=== PATIENT | female | born 1990 | race Caucasian/White ===

== ENCOUNTER 2017-05-07 18:13 | Emergency (ER) | payer SELFPAY ==
[~2017-05-07] VITALS: Ht 167.6 cm; Wt 60.0 kg
[~2017-05-07 18:13] MED LIST: PROM25SU8 PO; Z.0.NO CURRENT MEDS
[2017-05-07 18:17] VITALS: BP 127/69; PULSE 68; RESP 18; TEMP 98.1; O2SAT 100
--- NOTE | 2017-05-07 19:10 | RADRPT ---
EXAM DATE/TIME: 05/07/2017 18:34 [place] COMPARISON: No previous studies available for comparison. INDICATIONS : Lower back pain. MEDICAL HISTORY : None. SURGICAL HISTORY : None. ENCOUNTER: Initial ACUITY: 4 - 6 days PAIN SCORE: 6/10 LOCATION: Sacrum/Coccyx FINDINGS: Two-view examination of the sacrum and coccyx demonstrates no evidence of fracture or malalignment. The sacral ala and foramina appear symmetric and intact. The coccyx appears unremarkable. The preve rtebral soft tissues are within normal limits. CONCLUSION: No acute disease. Nirmal Noonan MD on May 07, 2017 at 19:08 Board Certified Radiologist. This report was verified electronically.
[2017-05-07 20:49] VITALS: BP 113/58; PULSE 61; RESP 16; O2SAT 100
[2017-05-07] MEDS ORDERED: BACL10TA PO (21:11)
[2017-05-07] MEDS ORDERED: DICL75TA PO (21:11)
[2017-05-07] MEDS ORDERED: KETOROLAC TROMETHAMINE 60 MG/2 ML (IM) VIAL IM ONE (21:15)
--- NOTE | 2017-05-07 21:15 | PD ---
HPI Chief Complaint: Back/ Neck Pain or Injury Time Seen by Provider: 20:49 Travel History International Travel<30 days: No Contact w/Intl Traveler<30days: No Traveled to known affect area: No History of Present Illness HPI 26-year-old female presents for evaluation of lower back pain. She reports that 6 days ago she was attempting to shoot across both for the first time. She reports that in order to sure that she has to pull it back very far. She reports that as she was pulling back her crossbow she felt a sharp pain in her lower back. Pain is a sharp pain which is constant and worse with movement. She reports occasional twinges of pain down her left leg. She reports that she had some numbness in her left leg yesterday evening briefly which resolved. Denies bowel or bladder incontinence, saddle anesthesia, abdominal pain, weakness. No other complaints at this time. PFSH Past Medical History Asthma: Yes ( A CHILD) Diabetes: No Patient Takes Glucophage: No Diminished Hearing: No Immunizations Current: Yes Tetanus Vaccination: Unknown Influenza Vaccination: No ?: Not LMP: APRIL 2017 : 0 Past Surgical History Surgical History: No Previous Surgery Social History Alcohol Use: Yes (OCCASIONAL) Tobacco Use: Yes Substance Use: No Allergies-Medications (Allergen,Severity, Reaction): Coded Allergies: diazepam (Unverified Allergy, Severe, 05/07/17) hives Reported Meds & Prescriptions Reported Meds & Active Scripts Active Diclofenac Sodium DR (Diclofenac Sodium) 75 Mg Tabdr 75 Mg PO BID 10 Days Baclofen 10 Mg Tab 10 Mg PO TID 10 Days Review of Systems Except as stated in HPI: all other systems reviewed are Neg Physical Exam Narrative GENERAL: Well-developed well-nourished female no acute distress SKIN: Warm and dry. HEAD: Atraumatic. Normocephalic. EYES: Pupils equal and round. No scleral icterus. No injection or drainage. ENT: No nasal bleeding or discharge. Mucous membranes pink and moist. NECK: Trachea midline. No JVD. CARDIOVASCULAR: Regular rate and rhythm. No murmur appreciated. RESPIRATORY: No accessory muscle use. Clear to auscultation. Breath sounds equal bilaterally. GASTROINTESTINAL: Abdomen soft, non-tender, nondistended. Hepatic and splenic margins not palpable. MUSCULOSKELETAL: No obvious deformities. No clubbing. No cyanosis. No edema. There is no reproducible tenderness to palpation to the lower back or paravertebral musculature. 5 out of 5 muscle strength in the lower extremities bilaterally. Negative straight leg raise. Distal pulses and sensation are preserved. NEUROLOGICAL: Awake and alert. No obvious cranial nerve deficits. Motor grossly within normal limits. Normal speech. Data Data Last Documented VS Vital Signs Date Time Temp Pulse Resp B/P (MAP) Pulse Ox O2 Delivery O2 Flow Rate FiO2 05/07/17 20:49 61 16 113/58 (76) 100 Room Air 05/07/17 18:17 98.1 Orders Orders Sacrum And Coccyx (05/07/17 ) Ketorolac Inj (Toradol Inj) (05/07/17 21:15) Ed Discharge Order (05/07/17 21:10) MDM Medical Decision Making Medical Screen Exam Complete: Yes Emergency Medical Condition: Yes Medical Record Reviewed: Yes Differential Diagnosis Muscle strain, herniated nucleus pulposus, muscle spasm Narrative Course X-ray of the sacrum and coccyx were ordered in triage and male unremarkable. Her examination and history are consistent with lumbar strain and likely lumbosacral radiculopathy. The patient will be given a dose of Toradol here and discharged with baclofen and diclofenac prescriptions. Diagnosis Primary Impression: Lumbar strain Additional Impression: Lumbosacral radiculopathy Additional Instructions: Medication as needed. Do not drive or drink alcohol and taking baclofen. Avoid strenuous activity or heavy lifting. Follow-up in 2 weeks with primary care physician. Return for any emergent medical conditions. Med/Other Pt SpecificInfo: Prescription(s) given Scripts Diclofenac Sodium DR (Diclofenac Sodium DR) 75 Mg Tabdr 75 MG PO BID for 10 Days, #20 TAB 0 Refills Prov: Aleshia Mccord DO 05/07/17 Baclofen (Baclofen) 10 Mg Tab 10 MG PO TID for Muscle Spasm for 10 Days, TAB 0 Refills Prov: Aleshia Mccord DO 05/07/17 Disposition: 01 DISCHARGE HOME Condition: Stable Neymar Bedoya May 07, 2017 21:15
== END 2017-05-07 21:42 | disposition home or self-care (01) ==
LOC: NEPD 18:13
DX: S39.012A Strain of muscle, fascia and tendon of lower back, initial encounter (principal); M54.17 Radiculopathy, lumbosacral region; X50.9XXA Other and unspecified overexertion or strenuous movements or postures, initial encounter; Y93.59 Activity, other involving other sports and athletics played individually
CPT/HCPCS: 72220; 96372; 99283; J1885